=== PATIENT | male | born 1990 | race Caucasian/White ===

== ENCOUNTER 2017-04-09 23:44 | Emergency (ER) | payer OTHER, MEDICARE ==
[2017-04-10 00:24] LABS: ABSOLUTE BASOPHIL COUNT 0.2 /CUMM (0.0-0.2); ABSOLUTE EOSINOPHIL COUNT 0 /CUMM (0.0-0.7); ABSOLUTE GRANULOCYTE CT 2.8 /CUMM (1.4-6.5); ABSOLUTE LYMPH COUNT 2.9 /CUMM (1.2-3.4); BASOPHIL % 2.7 % (0.0-2.0); EOSINOPHIL % 0.5 % (0-5); GRANULOCYTE % 40.4 % (42.2-75.2); HEMATOCRIT 40.3 % (42-52); MEAN CORPUSCULAR HGB 33.2 PG (27.0-31.0); MEAN CORPUSCULAR HGB CONC 34.2 G/DL (33.0-37.0); MEAN CORPUSCULAR VOLUME 96.9 FL (80.0-94.0); MEAN PLATELET VOLUME 8.9 FL (7.4-10.4); PLATELET COUNT 203 /CUMM (130-400); RBC DISTRIBUTION WIDTH 15.1 % (11.5-14.5); RED BLOOD CELL CT 4.16 /CUMM (4.70-6.10); WHITE BLOOD CELL COUNT 6.9 /CUMM (4.8-10.8)
[2017-04-10 00:35] LABS: PT 11.8 SEC (9.4-12.5)
--- NOTE | 2017-04-10 00:58 | ED GI/GU/ABDOMINAL COMPLAINT ---
History of Present Illness General Chief Complaint: Male Genitourinary Problems Stated Complaint: "ONE OF HIS TESTICLES IS HUGE" Source: patient, family, old records Exam Limitations: clinical condition, poor historian, physical impairment Vital Signs & Intake/Output Vital Signs & Intake/Output Vital Signs Date Time Temp Pulse Resp B/P B/P Pulse O2 O2 Flow FiO2 Mean Ox Delivery Rate 04/10 0140 96.6 78 18 112/64 98 Room Air 04/10 0027 Room Air 04/09 2356 96.7 80 18 116/75 97 Room Air Allergies Coded Allergies: No Known Allergies (04/09/17) Triage Note: TRIAGE: MOTHER REPORTS "I GAVE HIM A BATH TONIGHT AND LEFT TESTICLE IS HUGE," UNKNOWN ONSET. MOM DENIES ANY OTHER COMPLAINTS. PATIENT IS MR AND AUTISTIC, NON-VERBAL. NO ACUTE DISTRESS NOTED. PER MOM, PATIENT IS ALERT TO BASELINE, USING SIGN LANGUAGE W/ MOTHER. Triage Nurses Notes Reviewed? yes Onset: Just prior to arrival Duration: continues in ED, unknown duration Timing: recent history Location: scrotal Radiation: no radiation Activities at Onset: rest Prior Abdominal Problems: none Past Sexual History: Unobtainable at this time No Modifying Factors: none HPI: Prior to admission mom was giving the patient a bath and noted his left testicle to be swollen accompanied with bilateral inguinal rash. There's been no fever chills nausea vomiting diarrhea abdominal pain chest pain shortness of breath headache dysuria bleeding noted. Past History Travel History Traveled to [place] past 21 day No Medical History Any Pertinent Medical History? see below for history Neurological: DOWN'S SYNDROME SPEECH APROXIA EENT: NONE Cardiovascular: NONE Respiratory: NONE Gastrointestinal: NONE Hepatic: NONE Renal: NONE Musculoskeletal: NONE Psychiatric: AUTISTIC Endocrine: NONE Blood Disorders: NONE Cancer(s): NONE SHACKLER/Reproductive: NONE Surgical History Surgical History: non-contributory Psychosocial History What is your primary language Kyrgyz Tobacco Use: Never used Family History Hx Contributory? No Review of Systems Review of Systems Constitutional: Reports: no symptoms. EENTM: Reports: no symptoms. Respiratory: Reports: no symptoms. Cardiovascular: Reports: no symptoms. GI: Reports: no symptoms. Genitourinary: Reports: see HPI. Musculoskeletal: Reports: no symptoms. Skin: Reports: no symptoms. Neurological/Psychological: Reports: no symptoms. Hematologic/Endocrine: Reports: no symptoms. Immunologic/Allergic: Reports: no symptoms. All Other Systems: Reviewed and Negative Physical Exam Physical Exam General Appearance: well developed/nourished, alert, awake, anxious, obese Head: atraumatic Eyes: Bilateral: normal appearance, PERRL, EOMI, normal inspection. Ears, Nose, Throat, Mouth: hearing grossly normal, moist mucous membrane Neck: normal inspection, supple, full range of motion, normal alignment Respiratory: normal breath sounds, chest non-tender, no respiratory distress, quiet respiration, lungs clear Cardiovascular: regular rate/rhythm, normal peripheral pulses, norml femoral pulses equa Peripheral Pulses: 4+ carotid (R), 4+ carotid (L) Gastrointestinal: normal bowel sounds, soft, non-tender, no organomegaly Male Genitals: L testicle hard enlarged indurated with horizontal lie non tender Back: normal inspection, normal range of motion Extremities: normal range of motion, no ligament instability Neurologic/Psych: no motor/sensory deficits, awake, alert, normal gait, environmental monitoring specialist II- XII nml as tested Skin: normal color, rash (inguinal intertrigo) Core Measures ACS in differential dx? No Sepsis Present: No Sepsis Focused Exam Completed? No Progress Differential Diagnosis: epididymitis, testicular torsion Plan of Care: Orders Procedure Date/time Status URINALYSIS 04/10 5 Complete PROTHROMBIN TIME 04/10 5 Complete COMPREHENSIVE METABOLIC PANEL 04/10 5 Complete CBC WITHOUT DIFFERENTIAL 04/10 5 Complete Laboratory Tests 04/10/17 0017: Urine Color STRAW, Urine Clarity CLEAR, Urine pH 7.0, Ur Specific [place] 1.010, Urine Protein NEG, Urine Ketones NEG, Urine Nitrite NEG, Urine Bilirubin NEG, Urine Urobilinogen 0.2, Ur Leukocyte Esterase NEG, Ur Microscopic EXAM NOT REQUIRED, Urine Hemoglobin NEG, Urine Glucose NEG 04/10/17 0013: Anion Gap 14, Estimated GFR > 60, BUN/Creatinine Ratio 14.5, Glucose 98, Calcium 8.5, Total Bilirubin 0.3, AST 23, ALT 34, Alkaline Phosphatase 59, Total Protein 6.5, Albumin 3.6, Globulin 2.9, Albumin/Globulin Ratio 1.2, PT 11.8, INR 1.13, CBC w Diff NO MAN DIFF REQ, RBC 4.16 L, MCV 96.9 H, MCH 33.2 H, RDW 15.1 H, MPV 8.9, Gran % 40.4 L, Lymphocytes % 41.9, Monocytes % 14.5 H, Eosinophils % 0.5, Basophils % 2.7 H, Absolute Granulocytes 2.8, Absolute Lymphocytes 2.9, Absolute Monocytes 1.0 H, Absolute Eosinophils 0, Absolute Basophils 0.2, PUBS MCHC 34.2 Diagnostic Imaging: Viewed by Me: Ultrasound. Discussed w/RAD: Ultrasound. Radiology Impression: Left testicular mass which prominently enlarged as the testicle. Calcifications in the mass with prominent vascularity. This is suspicious for neoplasm. No evidence of testicular torsion. 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
--- NOTE | 2017-04-10 01:16 | ULTRASOUND REPORT ---
EXAMINATION: US SCROTUM CLINICAL INFORMATION: Left testicular swelling. COMPARISON: None TECHNIQUE: A sonogram of the scrotum was performed assessing woodruff-scale appearance and color Doppler flow. Spectral analysis and Doppler interrogation was performed. FINDINGS: RIGHT: Right testicle measures 2.8 x 1.4 x 2.2 cm, volume 6.1 mL. Parenchymal echotexture is normal. No focal testicular parenchymal lesions are visualized. Microlithiasis present. Normal symmetric intratesticular flow is visualized. Right epididymal head is normal in size. There is a 0.3 cm cyst in the epididymal tail. No hydrocele. Small varicocele noted. LEFT: Left testicle measures 5.6 x 5.1 x 5.5 cm, volume 111.5 mL. There is a prominent heterogeneous lesion in the testicle. This measures 5.7 x 3.8 x 6.2 cm. This demonstrates prominent vascularity. Calcifications are present within the mass. Left epididymal head is normal in size. No varicocele. There is a small hydrocele.. IMPRESSION: Left testicular mass which prominently enlarged as the testicle. Calcifications in the mass with prominent vascularity. This is suspicious for neoplasm. No evidence of testicular torsion. This critical result was discussed with Miki Villa MD by telephone at 04/10/2017 1:13 AM and it was ascertained that the content and urgency of the report was understood at the time of direct communication.
[2017-04-10 01:40] VITALS: BP 112/64
== END 2017-04-10 01:43 ==
LOC: ERH 23:44
PROVIDERS: Emergency Medicine
DX: D40.10 Neoplasm of uncertain behavior of unspecified testis (principal); B35.6 Tinea cruris
CPT/HCPCS: 81003